=== PATIENT | male | born 1985 | race Hispanic/Latino ===

== ENCOUNTER 2019-03-27 05:37 | Emergency (ER) | payer OTHER ==
[2019-03-27] MEDS ORDERED: Lidocaine 1% (PF) 30 ML VIAL ONE (05:52)
[2019-03-27] MEDS ORDERED: Amoxicillin/Potassium Clav 875 MG TAB ONE (06:30)
[2019-03-27] MEDS ORDERED: Bacitracin 1 PK ONE (06:49)
--- NOTE | 2019-03-27 07:40 | RAD ---
EXAM: 3 views of the right hand COMPARISON: None HISTORY: Laceration to the right hand while working out FINDINGS: 3 views of the right hand shows no evidence of acute fracture or dislocation. No degenerati ve changes are seen. Mild dorsal soft tissue swelling is present. IMPRESSION: Unremarkable exam.
== END 2019-03-27 07:21 ==
LOC: NAV ERS 05:37
DX: S61.213A Laceration without foreign body of left middle finger without damage to nail, initial encounter (principal); E11.9 Type 2 diabetes mellitus without complications; E03.9 Hypothyroidism, unspecified; I10 Essential (primary) hypertension; Z79.4 Long term (current) use of insulin; W22.8XXA Striking against or struck by other objects, initial encounter
CPT/HCPCS: 26418; J2001